=== PATIENT | female | born 1955 | race Caucasian/White ===

== ENCOUNTER → 2025-05-03 07:58 | Outpatient (REF) | payer OTHER, SELFPAY | LOC: RSP 07:58 | PROVIDERS: ATTENDING PHYSICIAN Internal Medicine Rheumatology; FAMILY PHYSICIAN Student in an Organized Health Care Education/Training Program | DX: E83.59 Other disorders of calcium metabolism (principal); M34.1 CR(E)ST syndrome | CPT/HCPCS: 73130; 73552; 88738; 94010; 94727; 94729 ==